=== PATIENT | male | born 1985 | race Caucasian/White ===

== ENCOUNTER 2018-02-21 15:18 | Emergency (ER) | payer MEDICAID, OTHER ==
[2018-02-21] MEDS: HYDROCODONE/APAP (5/325) TAB PO (15:45)
[2018-02-21] MEDS: DIPHTH/TET/ACEL PERTUSS (ADULT) 0.5 ML VIAL IM* (15:46)
[2018-02-21] MEDS: LIDOCAINE 2% (MDV) 20 ML INJ INJ (15:46)
[2018-02-21] MEDS: CEFAZOLIN 1 GM INJ IM (17:07)
== END 2018-02-21 18:17 | disposition home or self-care (01) ==
LOC: FTE 18:17
DX: S62.391A Other fracture of second metacarpal bone, left hand, initial encounter for closed fracture (principal); F17.210 Nicotine dependence, cigarettes, uncomplicated; W26.8XXA Contact with other sharp object(s), not elsewhere classified, initial encounter; Y92.89 Other specified places as the place of occurrence of the external cause; Z23 Encounter for immunization
CPT/HCPCS: 12002; 73130-LT; 90471; 90715; 96372; 99284-25